=== PATIENT | male | born 1950 | race African-American/Black ===

== ENCOUNTER 2018-01-14 09:23 | Day surgery (SDC) | payer MEDICARE ==
[~2018-01-14] VITALS: Ht 172.7 cm; Wt 83.0 kg
[~2018-01-14 09:23] MED LIST: AMLODIPINE5 MG PO; LISINOP/HCTZ1 TA2 PO; METFORMIN1000 MG PO; NIACIN SR500 M1 PO; ZESTRIL10 M1 PO; ZOCOR20 M1 PO
[2018-01-14 13:18] VITALS: BP 133/86
== END 2018-01-14 13:39 | disposition home or self-care (01) ==
LOC: ENDO 09:23
PROVIDERS: ATTEND Surgery
PROC: 0DJD8ZZ Inspection of Lower Intestinal Tract, Via Natural or Artificial Opening Endoscopic (ICD-10-PCS; principal; 2018-01-14)
DX: Z12.11 Encounter for screening for malignant neoplasm of colon (principal); K57.30 Diverticulosis of large intestine without perforation or abscess without bleeding; E11.9 Type 2 diabetes mellitus without complications; I10 Essential (primary) hypertension

== ENCOUNTER 2018-06-18 21:15 | Emergency (ER) | payer MEDICARE ==
[~2018-06-18] VITALS: Ht 172.7 cm; Wt 109.1 kg
[2018-06-18 21:46] LABS: IMMATURE GRANULOCYTES 0.4 % (0.0-5.0); MEAN CELL VOLUME 89.7 fL CALC (80.0-100.0); MEAN CORPUSCULAR HGB 28.6 pG CALC (26.0-32.0); MEAN CORPUSCULAR HGB CONC 31.9 g/L CALC (32.0-36.0); NEUT# 6.73 thou/uL (1.82-7.42); RED BLOOD COUNT 3.88 mill/uL (4.70-6.10); RED CELL DISTRI WIDTH 13.8 % (11.5-15.5)
[2018-06-18 21:47] LABS: HEMOGLOBIN 11.1 g/dl (14.0-18.0)
[2018-06-18 21:48] LABS: HEMATOCRIT 34.8 % (39.0-50.0)
[2018-06-18 22:01] LABS: ALBUMIN 4.2 g/dL (3.2-5.0); ALKALINE PHOSPHATASE 39 u/l (38-126); AMYLASE 78 u/l (30-110); ANION GAP 17 (6-22 (CALC)); BILIRUBIN, TOTAL 0.2 mg/dL (0.0-1.4); BUN 35 mg/dL (8-23); BUN/CREATININE RATIO 41 (12-20 (CALC)); CARBON DIOXIDE 25 mmol/l (22-30); CHLORIDE 102 mmol/l (95-108); CREATININE 0.9 mg/dL (0.7-1.3); ETHYL ALCOHOL 0 mg/dl (0-30); GFR > 60 ML/MIN (>=60 (CALC)); GFR FOR AFR.AMER. > 60 ML/MIN (>=60 (CALC)); LIPASE 178 u/l (23-300); POTASSIUM 3.6 mmol/l (3.5-5.1); SGOT/AST 30 u/l (19-48); SODIUM 140 mmol/l (137-146); TOTAL PROTEIN 6.7 g/dL (6.3-8.2)
[2018-06-18 22:12] LABS: MYOGLOBIN 22 ng/mL (0 - 121)
[2018-06-18 22:15] LABS: ACT PARTIAL THROMBO TIME 21.3 SECONDS (20.0-32.5); PROTHROMBIN TIME 10.8 SECONDS (9.0-12.5)
[2018-06-18 23:10] VITALS: BP 121/60
== END 2018-06-18 23:15 | disposition short-term general hospital (02) ==
LOC: ED 21:15
PROVIDERS: Emergency Medicine
DX: K92.0 Hematemesis (principal); R00.0 Tachycardia, unspecified; D64.9 Anemia, unspecified; R94.31 Abnormal electrocardiogram [ECG] [EKG]
CPT/HCPCS: J2060; S0164

== ENCOUNTER 2018-10-30 11:39 | Day surgery (SDC) | payer MEDICARE ==
[~2018-10-30 11:39] MED LIST changes: +GLIPIZIDE5 MG PO; +LATANOPROST0.005 % IO; +LISINOPRIL10 MG PO; +PANTOPRAZOLE SO40 MG PO
[2018-10-30 13:52] VITALS: BP 148/86
== END 2018-10-30 14:00 | disposition home or self-care (01) ==
LOC: ENDO 11:39 → ORM 15:30
PROVIDERS: ATTEND Internal Medicine Gastroenterology
PROC: 0DB48ZX Excision of Esophagogastric Junction, Via Natural or Artificial Opening Endoscopic, Diagnostic (ICD-10-PCS; principal; 2018-10-30)
DX: K22.70 Barrett's esophagus without dysplasia (principal); K29.70 Gastritis, unspecified, without bleeding; K44.9 Diaphragmatic hernia without obstruction or gangrene; J98.8 Other specified respiratory disorders; I10 Essential (primary) hypertension; E11.9 Type 2 diabetes mellitus without complications; Z87.11 Personal history of peptic ulcer disease; Z79.899 Other long term (current) drug therapy

== ENCOUNTER 2019-01-29 06:27 | Day surgery (SDC) | payer MEDICARE ==
[~2019-01-29 06:27] MED LIST changes: +[UNRECOGNIZED DRUG - REMARK]
[2019-01-29 08:32] VITALS: BP 121/73
== END 2019-01-29 08:50 | disposition home or self-care (01) ==
LOC: ENDO 06:27 → ORM 07:30 → ENDO 07:30
PROVIDERS: ATTEND Internal Medicine Gastroenterology
PROC: 0DBL8ZX Excision of Transverse Colon, Via Natural or Artificial Opening Endoscopic, Diagnostic (ICD-10-PCS; principal; 2019-01-29)
PROC: 0DBH8ZX Excision of Cecum, Via Natural or Artificial Opening Endoscopic, Diagnostic (ICD-10-PCS; 2019-01-29)
PROC: 0DBN8ZX Excision of Sigmoid Colon, Via Natural or Artificial Opening Endoscopic, Diagnostic (ICD-10-PCS; 2019-01-29)
PROC: 0DBP8ZX Excision of Rectum, Via Natural or Artificial Opening Endoscopic, Diagnostic (ICD-10-PCS; 2019-01-29)
DX: D50.9 Iron deficiency anemia, unspecified (principal); D12.0 Benign neoplasm of cecum; D12.3 Benign neoplasm of transverse colon; K57.30 Diverticulosis of large intestine without perforation or abscess without bleeding; K63.5 Polyp of colon; K62.1 Rectal polyp; K64.8 Other hemorrhoids; K64.4 Residual hemorrhoidal skin tags; I10 Essential (primary) hypertension; E11.9 Type 2 diabetes mellitus without complications; K21.9 Gastro-esophageal reflux disease without esophagitis; K22.70 Barrett's esophagus without dysplasia; K44.9 Diaphragmatic hernia without obstruction or gangrene; Z79.4 Long term (current) use of insulin; Z87.11 Personal history of peptic ulcer disease

== ENCOUNTER 2019-03-29 15:16 | Emergency (ER) | payer OTHER, MEDICARE ==
[~2019-03-29] VITALS: Ht 172.7 cm; Wt 86.0 kg
[2019-03-29 15:53] LABS: IMMATURE GRANULOCYTES 0.4 % (0.0-5.0); MEAN CELL VOLUME 84.9 fL CALC (80.0-100.0); MEAN CORPUSCULAR HGB 27.1 pG CALC (26.0-32.0); MEAN CORPUSCULAR HGB CONC 31.9 g/L CALC (32.0-36.0); NEUT# 2.87 thou/uL (1.82-7.42); RED BLOOD COUNT 5.91 mill/uL (4.70-6.10); RED CELL DISTRI WIDTH 16.2 % (11.5-15.5)
[2019-03-29 15:56] LABS: HEMATOCRIT 50.2 % (39.0-50.0)
[2019-03-29 16:08] LABS: ALBUMIN 4.9 g/dL (3.2-5.0); ANION GAP 16 (6-22 (CALC)); BUN 16 mg/dL (8-23); BUN/CREATININE RATIO 18 (12-20 (CALC)); CARBON DIOXIDE 27 mmol/l (22-30); CHLORIDE 102 mmol/l (95-108); CREATININE 0.9 mg/dL (0.7-1.3); GFR > 60 ML/MIN (>=60 (CALC)); GFR FOR AFR.AMER. > 60 ML/MIN (>=60 (CALC)); POTASSIUM 3.4 mmol/l (3.5-5.1); SGOT/AST 26 u/l (19-48); SODIUM 141 mmol/l (137-146)
[2019-03-29 16:11] LABS: ALKALINE PHOSPHATASE 60 u/l (38-126); BILIRUBIN, TOTAL 0.3 mg/dL (0.0-1.4); TOTAL PROTEIN 8.7 g/dL (6.3-8.2)
[2019-03-29 16:20] LABS: MYOGLOBIN 41 ng/mL (0 - 121)
[2019-03-29 16:41] LABS: URINE BILIRUBIN - DIPSTICK NEGATIVE (NEGATIVE); URINE BLOOD DIPSTICK NEGATIVE (NEGATIVE); URINE COLOR YELLOW; URINE GLUCOSE - DIPSTICK NEGATIVE (NEGATIVE); URINE KETONE NEGATIVE (NEGATIVE); URINE LEUK ESTERASE NEGATIVE (NEGATIVE); URINE NITRITE - DIPSTICK NEGATIVE (Negative); URINE PROTEIN - DIPSTICK NEGATIVE (NEG-TRACE); URINE SPECIFIC GRAVITY 1.025; URINE UROBILINOGEN - DIPSTICK 0.2 E.U./dL (0.2)
[2019-03-29] MEDS ORDERED: NAPROXEN500 MG PO (16:59)
[2019-03-29] MEDS ORDERED: ANTIVERT PO (16:59)
[2019-03-29] MEDS ORDERED: FLEXERIL PO (16:59)
[2019-03-29 17:07] VITALS: BP 164/83
== END 2019-03-29 17:07 | disposition home or self-care (01) | DRG 149 ==
LOC: ED 15:16
PROVIDERS: Emergency Medicine
DX: R42 Dizziness and giddiness (principal); M47.892 Other spondylosis, cervical region; M54.2 Cervicalgia; R51 Headache; I10 Essential (primary) hypertension; E11.9 Type 2 diabetes mellitus without complications; Z79.84 Long term (current) use of oral hypoglycemic drugs

== ENCOUNTER 2019-11-26 07:32 | Day surgery (SDC) | payer MEDICARE ==
[~2019-11-26] VITALS: Ht 172.7 cm; Wt 86.2 kg
[~2019-11-26 07:32] MED LIST changes: +ANTIVERT PO; +FAMOTIDINE20 M1 PO; +FLEXERIL PO; +FLONASE AL50 MCG/ACT IN; +LISINOPRIL10 M1 PO; +NAPROXEN500 MG PO; +OMEPRAZOLE10 MG PO; +POTASSIUM CHLO10 MEQ PO
[2019-11-26 11:43] VITALS: BP 132/79
== END 2019-11-26 11:53 | disposition home or self-care (01) ==
LOC: ENDO 07:32 → ORM 10:45 → ENDO 11:20
PROVIDERS: ATTEND Internal Medicine Gastroenterology
PROC: 0DB58ZX Excision of Esophagus, Via Natural or Artificial Opening Endoscopic, Diagnostic (ICD-10-PCS; principal; 2019-11-26)
DX: K22.70 Barrett's esophagus without dysplasia (principal); K44.9 Diaphragmatic hernia without obstruction or gangrene; K21.0 Gastro-esophageal reflux disease with esophagitis; K29.70 Gastritis, unspecified, without bleeding; D50.9 Iron deficiency anemia, unspecified; I10 Essential (primary) hypertension; E11.9 Type 2 diabetes mellitus without complications; K59.00 Constipation, unspecified; Z86.010 Personal history of colon polyps; Z11.59 Encounter for screening for other viral diseases

== ENCOUNTER 2021-04-01 01:13 | Emergency (ER) | payer MEDICARE ==
[~2021-04-01] VITALS: Ht 172.7 cm; Wt 82.7 kg
[2021-04-01] MEDS ORDERED: JARDIANCE25 MG (01:45)
[2021-04-01] MEDS ORDERED: CARAFATE PO (01:47)
[2021-04-01 01:49] LABS: ALBUMIN 4.2 g/dL (3.2-5.0); ALKALINE PHOSPHATASE 63 u/l (38-126); ANION GAP 15 (6-22 (CALC)); BUN 19 mg/dL (8-23); BUN/CREATININE RATIO 22 (12-20 (CALC)); CARBON DIOXIDE 29 mmol/l (22-30); CHLORIDE 99 mmol/l (95-108); CREATININE 0.9 mg/dL (0.7-1.3); GFR > 60 ML/MIN (>=60 (CALC)); GFR FOR AFR.AMER. > 60 ML/MIN (>=60 (CALC)); MAGNESIUM 1.8 mg/dL (1.6-2.3); POTASSIUM 3.7 mmol/l (3.5-5.1); SGOT/AST 26 u/l (19-48); SODIUM 140 mmol/l (137-146); TOTAL PROTEIN 7.1 g/dL (6.3-8.2)
[2021-04-01 01:53] LABS: D-DIMER 4.37 mg/L (0.19-0.60)
[2021-04-01 01:56] LABS: HEMATOCRIT 48.4 % (39.0-50.0); IMMATURE GRANULOCYTES 0.9 % (0.0-5.0); MEAN CORPUSCULAR HGB 28.1 pG CALC (26.0-32.0); NEUT# 4.43 thou/uL (1.82-7.42); RED BLOOD COUNT 5.33 mill/uL (4.70-6.10); RED CELL DISTRI WIDTH 13.5 % (11.5-15.5)
[2021-04-01 01:59] LABS: MEAN CELL VOLUME 90.8 fL CALC (80.0-100.0)
[2021-04-01 02:06] LABS: ACT PARTIAL THROMBO TIME 23.9 SECONDS (20.0-32.5); BILIRUBIN, TOTAL 0.5 mg/dL (0.0-1.4); INTERNATIONAL NORMALIZED RATIO 0.9 RATIO (0.7-1.3); PROTHROMBIN TIME 9.9 SECONDS (9.0-12.5)
[2021-04-01 03:46] VITALS: BP 143/70
== END 2021-04-01 03:46 | disposition home or self-care (01) ==
LOC: ED 01:13
PROVIDERS: Family Medicine
DX: R04.2 Hemoptysis (principal); K22.70 Barrett's esophagus without dysplasia; Z87.11 Personal history of peptic ulcer disease
CPT/HCPCS: Q9967